=== PATIENT | male | born 1990 | race Caucasian/White ===

== ENCOUNTER 2017-12-21 13:44 | Emergency (ER) | payer OTHER, SELFPAY ==
[2017-12-21 13:47] VITALS: BP 118/73; PULSE 78; RESP 16; TEMP 36.6; O2SAT 98; BMI 29.5
--- NOTE | 2017-12-21 14:45 | ED.LOWEXIN ---
HPI - Extremity Injury (Lower) General Chief Complaint: Extremity Injury, Lower Stated Complaint: POSSIBLE TORN HAMSTRING Time Seen by Provider: 12/21/17 14:45 Source: patient and family Mode of arrival: ambulatory Limitations: no limitations History of Present Illness HPI Narrative: 27 year-old nonsmoker, otherwise healthy male presents with his in the chief complaint of right hamstring injury after slipping on a wet surface a few days ago. He now has increasing pain with ambulation and had some swelling a few days ago which is now improved. He denies any numbness, tingling or weakness. He denies any history of the same. he is here because he could not get in with his primary care provider complaint: leg injury Onset (ago): day(s) Type of Injury: hyperextension Place: home Severity: moderate Relieving factors: nothing Exacerbating factors: movement Context: walking Associated symptoms: snap/pop sensation Other symptoms: none Related Data Home Medications Medication Instructions Recorded Confirmed carboxymethylcellulose sodium 1 drp OPHTHALMIC (EYE) PRN PRN 12/21/17 [Refresh Tears] fluticasone 1 spray INTRANASAL DIRECTED 12/21/17 12/21/17 loratadine 10 mg PO DAILY 12/21/17 12/21/17 sertraline 50 mg PO DAILY 12/21/17 12/21/17 trazodone 50 mg PO DAILY 12/21/17 12/21/17 Allergies Allergy/AdvReac Type Severity Reaction Status Date / Time No Known Drug Allergies Allergy Verified 12/21/17 14:46 Review of Systems Review of Systems All systems reviewed & are unremarkable except as noted in HPI and below Constitutional Denies chills, Denies fever(s), Denies lethargy and Denies weakness Eyes Denies change in vision, Denies eye discharge, Denies irritation and Denies loss of vision ENT Ears, Nose, Mouth, and Throat: Denies change in voice, Denies neck pain and Denies sore throat Cardiovascular Denies chest pain, Denies irregular heart rhythm, Denies lightheadedness, Denies palpitations, Denies dyspnea, Denies dyspnea on exertion and Denies orthopnea Respiratory Denies cough, Denies dyspnea, Denies dyspnea on exertion and Denies wheezing Gastrointestinal Gastrointestinal: Denies abdominal pain, Denies change in bowel habits, Denies diarrhea, Denies nausea and Denies vomiting Genitourinary Denies hematuria, Denies flank pain, Denies urinary incontinence and Denies urinary urgency Musculoskeletal Reports limited range of motion and Denies neck pain Integumentary/Breasts Denies pruritus, Denies erythema, Denies rash and Denies wounds Neurologic Denies confusion, Denies loss of vision and Denies weakness Psychiatric Denies anxiety, Denies confusion, Denies depression, Denies homicidal ideation and Denies suicidal ideation Endocrine Denies palpitations Hematologic/Lymphatic Denies easy bruising Allergic/Immunologic Denies wheezing [facility] Social History Smoking Status: Never smoker Exam Narrative Exam Narrative: 27-year-old male obviously uncomfortable Initial Vital Signs Initial Vital Signs: Vital Signs Temperature 97.8 F 12/21/17 13:47 Pulse Rate 78 12/21/17 13:47 Respiratory Rate 16 12/21/17 13:47 Blood Pressure 118/73 12/21/17 13:47 Pulse Oximetry 98 12/21/17 13:47 Const General: cooperative and well developed Nutritional Appearance: well nourished Orientation: alert, awake, oriented x3 and not confused [facility] Head: normocephalic and atraumatic Ears: external ears normal and TM's normal bilaterally Nose: external nose normal and No nasal discharge Face and sinus: sinuses nontender, face symmetric, no sinus tenderness and No dry mucous membranes Mouth: oral mucosae normal and moist mucous membranes Teeth and gingiva: dentition normal Throat: tonsils normal and uvula midline Eyes General: appearance normal, both eyes and all related structures Eyelids: eyelids normal Conjunctivae: conjunctivae normal Sclera: sclerae normal Pupils: PERRL EOM: EOM intact bilaterally Cardio Rate: regular rate Rhythm: regular rhythm Heart Sounds: no click, no gallops, no murmurs and no rubs Pulses: normal peripheral pulses Back/Spine/Pelvis Back: No CVA tenderness Cervical Spine: cervical ROM normal and No pain with cervical ROM Thoracic/Lumbar Spine: thoracic and lumbar spine normal to inspection Skin General: no rashes or lesions noted, No jaundice and No petechiae Neuro General: alert, oriented x3, gait normal and no focal motor deficits Speech: speech normal Extrem Right lower extremity: hip/thigh (Patient has some tenderness to palpation along his hamstrings but has 5/5 strength with flexion at the knee. There is no ecchymosis or swelling but pain in the distribution suggests hamstring injury) Course Vital Signs - 8 hr 12/21/17 13:47 Temperature 97.8 F Pulse Rate 78 Respiratory Rate 16 Blood Pressure 118/73 Pulse Oximetry 98 Discharge Plan Departure Patient Disposition: Home Clinical Impression: Right hamstring injury Discharge Date/Time: 12/21/17 15:27 Interventions: ED Discharge Assessment Last Done: 12/21/17 15:27 Instructions: DI for Hamstring Strain Activity Restrictions/Additional Instructions: 1. Follow up with your doctors early in the week for follow up, let them know you were seen in the Emergency Department 2. Use crutches as instructed 3. Take motrin and tylenol as directed 4. Return if worse Prescriptions: No Action trazodone 50 mg tablet 50 mg PO DAILY RF: 0 carboxymethylcellulose sodium [Refresh Tears] 0.5 % drops 1 drp ophthalmic (eye) PRN PRN (Reason: Dry Eyes) RF: 0 fluticasone 50 mcg/actuation spray,suspension 1 spray Intranasal DIRECTED RF: 0 sertraline 50 mg tablet 50 mg PO DAILY RF: 0 loratadine 10 mg tablet 10 mg PO DAILY RF: 0
--- NOTE | 2017-12-21 15:26 | PC.NURSE ---
think I tore a hamstring, posterior upper leg apin without visual sign on injury, slip/fall 2 days ago, distal cms intact full AROM with discomfort
== END 2017-12-21 15:27 | disposition home or self-care (01) ==
PROVIDERS: Emergency Provider Emergency Medicine
DX: S76.301A Unspecified injury of muscle, fascia and tendon of the posterior muscle group at thigh level, right thigh, initial encounter (principal); W01.0XXA Fall on same level from slipping, tripping and stumbling without subsequent striking against object, initial encounter
CPT/HCPCS: 99282

== ENCOUNTER → 2018-09-02 07:56 | Outpatient (CLI) | payer OTHER, SELFPAY | PROVIDERS: PCP Internal Medicine; Visit Provider Orthopaedic Surgery | DX: M79.632 Pain in left forearm (principal); M79.631 Pain in right forearm; Z53.9 Procedure and treatment not carried out, unspecified reason ==

== ENCOUNTER → 2018-09-17 13:01 | Outpatient (CLI) | payer OTHER, SELFPAY ==
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
== END ==
PROVIDERS: PCP Internal Medicine; Visit Provider Orthopaedic Surgery
DX: M79.632 Pain in left forearm (principal); M79.631 Pain in right forearm
CPT/HCPCS: 73218

== ENCOUNTER 2018-10-28 20:47 | Emergency (ER) | payer OTHER, SELFPAY ==
[2018-10-28 20:57] VITALS: BP 137/78; PULSE 72; RESP 18; TEMP 36.5; O2SAT 98; BMI 29.5
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
[2018-10-28] MEDS: KETOROLAC 60 MG/2 ML VIAL IM (22:32)
[2018-10-28] MEDS: HYDROCODONE/ACET 5/325 PREPACK 1 BOTTLE MISC (22:38)
== END 2018-10-28 22:40 | disposition home or self-care (01) ==
PROVIDERS: Emergency Provider Emergency Medicine; PCP Internal Medicine
DX: S16.1XXA Strain of muscle, fascia and tendon at neck level, initial encounter (principal); V49.40XA Driver injured in collision with unspecified motor vehicles in traffic accident, initial encounter
CPT/HCPCS: 70450; 72100; 72125; 96372; 99282; 99284; J1885

== ENCOUNTER → 2019-08-13 15:30 | Outpatient (CLI) | payer OTHER, SELFPAY ==
--- NOTE | 2019-08-13 | DI.MRI.S_ITS ---
PROCEDURE: MR LUMBAR SPINE WO CON INDICATIONS: Low back pain with bilateral leg posterior radicular pain TECHNIQUE: Noncontrast sagittal T1 spin echo and T2 fast echo, sagittal STIR, axial T1 and T2 fast spin echo through the lumbar spine. In cases with scoliosis, additional coronal T2 fast spin echo may be performed. COMPARISON: [facility] [place], CR, XR LUMBAR SPINE WITH OBLIQUES, 02/26/2017, 9:37. [facility], MR, L-SPINE WITHOUT CONTRAST, 03/20/2017, 7:03. FINDINGS: Image quality: Excellent. Alignment and Curvature: 5 lumbar type vertebral bodies are present by plain film. There is loss of normal lumbar lordosis. There is mild grade 1 retrolisthesis of L4 on L5. Bone Marrow: Marrow is of normal overall signal. No acute vertebral body compression fractures. There is mild reactive signal within the endplates adjacent to the L4-L5 intervertebral disc. Spinal Cord: Conus medullaris terminates at the mid L1 level. Visualized cord demonstrates normal signal and size. Paraspinous Soft Tissues: No paravertebral masses. L1-L2: Normal appearance. L2-L3: Normal appearance. L3-L4: Mild facet hypertrophy. No significant canal, nor foraminal stenosis. No change. L4-L5: Mild disc desiccation. Mild diffuse disc bulge. Mild bilateral facet hypertrophy. Mild canal stenosis. Mild bilateral foraminal stenosis. No change. L5-S1: Mild bilateral facet hypertrophy. No significant canal stenosis. Mild bilateral foraminal stenosis. No change. IMPRESSION: 1. Multilevel degenerative disc and facet disease, as well as ligamentum flavum hypertrophy and epidural lipomatosis. 2. Mild multilevel canal and foraminal stenoses. No neural impingement. Dictated by: Eric Laura M.D. on 08/13/2019 at 16:44 Approved by: Eric Laura M.D. on 08/13/2019 at 16:47
== END ==
PROVIDERS: PCP Internal Medicine; Referring Provider Physical Medicine & Rehabilitation Pain Medicine; Visit Provider Physical Medicine & Rehabilitation Pain Medicine
DX: M54.5 Low back pain (principal); M51.16 Intervertebral disc disorders with radiculopathy, lumbar region; M48.061 Spinal stenosis, lumbar region without neurogenic claudication; M48.07 Spinal stenosis, lumbosacral region; E88.2 Lipomatosis, not elsewhere classified
CPT/HCPCS: 72148

== ENCOUNTER 2022-05-08 18:47 | Emergency (ER) | payer OTHER, SELFPAY ==
[2022-05-08 18:54] VITALS: BP 122/57; PULSE 69; RESP 16; TEMP 36.6; O2SAT 99; BMI 29.5
--- NOTE | 2022-05-08 19:05 | DI.US.S_ITS ---
PROCEDURE: US SCROTUM INDICATIONS: LEFT TESTICLE SWELLING/PAIN TECHNIQUE: Real-time scanning was performed of the scrotum and testicles, with image documentation. Color and pulse Doppler interrogation was performed of both testicles. COMPARISON: None. FINDINGS: Right: Testicle measures 4.7 x 3.4 x 2.0 cm and appears homogenous in echotexture. Epididymis is normal in overall size and morphology. There is a simple cyst within the right epididymal head measuring 0.3 x 0.2 x 0.2 cm consistent with and epididymal cyst or spermatocele. No hydrocele or varicoceles. Overlying scrotal skin is normal in thickness. Left: Testicle measures 4.8 x 3.4 x 2.0 cm and appears homogeneous in echotexture. Epididymis is normal in overall size and morphology. No hydrocele. There is a small varicocele. Overlying scrotal skin is normal in thickness. Doppler: Color and pulse Doppler demonstrate normal and symmetric arterial flow in both testicles. IMPRESSION: 1. Small left varicocele. Dictated by: Aakash Fam M.D. on 05/08/2022 at 21:05 Approved by: Aakash Fam M.D. on 05/08/2022 at 21:07
--- NOTE | 2022-05-08 19:31 | ED_ITS ---
HPI - Male Genitourinary General Chief complaint: Urogenital-Male Stated complaint: LT. SIDE TESTICAL/HERNIA Time Seen by Provider: 05/08/22 19:05 Source: patient Mode of arrival: Ambulatory History of Present Illness HPI Narrative: Patient is a 32-year-old healthy male who presents with left testicular pain ongoing for about 1 week. He denies any injury. No flank pain no nausea vomiting. Some lower quadrant pain as well. No fever or chills. No painful or frequent urination. He is sexually active with 1 female partner no history of STDs. Related Data Home Medications Medication Instructions Recorded Confirmed carboxymethylcellulose sodium 0.5 1 drp ophthalmic (eye) PRN PRN Dry 12/21/17 % eye drops Eyes fluticasone propionate 50 1 spray intranasal DIRECTED 12/21/17 12/21/17 mcg/actuation nasal spray,suspension loratadine 10 mg tablet 10 mg PO DAILY 12/21/17 12/21/17 sertraline 50 mg tablet 50 mg PO DAILY 12/21/17 12/21/17 trazodone 50 mg tablet 50 mg PO DAILY 12/21/17 12/21/17 Previous Rx's Medication Instructions Recorded cyclobenzaprine 10 mg tablet 10 mg PO TID PRN muscle spasm #14 10/28/18 tabs ketorolac 10 mg tablet 10 mg PO Q6H PRN pain #14 tabs 10/28/18 Allergies Allergy/AdvReac Type Severity Reaction Status Date / Time No Known Drug Allergies Allergy Verified 05/08/22 18:57 Review of Systems Review of Systems ROS Unobtainable: All systems reviewed & are unremarkable except as noted in HPI and below Patient History Social History Smoking Status: Never smoker Smoking Status: Never smoker Substance Use Type: does not use Exam Initial Vital Signs Initial Vital Signs: Vital Signs Temperature 97.9 F 05/08/22 18:54 Pulse Rate 69 05/08/22 18:54 Respiratory Rate 16 05/08/22 18:54 Blood Pressure 122/57 L 05/08/22 18:54 Pulse Oximetry 99 05/08/22 18:54 Oxygen Delivery Method 05/08/22 18:54 GENERAL: Well-appearing, well-nourished and in no acute distress. CARDIOVASCULAR: peripheral pulses in tact, cap refill <2 sec RESPIRATORY: No respiratory distress, speaks in full sentences without difficulty ABDOMEN: Soft, nontender, no guarding or rebound : Nurse Janee present for exam no significant inguinal swelling no testicular herniation appreciated minimal tenderness to left testicle no flank pain. Right testicle also within normal limits EXTREMITIES: Normal range of motion, no clubbing or edema. Neurovascularly intact NEUROLOGICAL: Cranial nerves II through XII grossly intact. Normal gait and speech. SKIN: Warm, dry, no petechiae, no rashes or lesions. Course Orders Ordered: ED Orders 05/08/22 19:05 US scrotum Stat Discontinued Medications Hydrocodone Bitart/Acetaminophen (Hydrocodone/Acet 5/325 Prepack) 1 bottle MISC SEEINSTR ONE Stop: 05/08/22 21:26 Last Admin: 05/08/22 21:53 Dose: 1 bottle Documented By: VERNELL Ketorolac Tromethamine (Ketorolac 30 Mg/Ml Vial) 30 mg IM NOW ONE Stop: 05/08/22 19:43 Last Admin: 05/08/22 19:55 Dose: 30 mg Documented By: AT Vital Signs Vital signs: Vital Signs - 8 hr 05/08/22 18:54 05/08/22 21:55 Temperature 97.9 F Pulse Rate 69 68 Respiratory Rate 16 16 Blood Pressure 122/57 L 120/64 Pulse Oximetry 99 99 Oxygen Delivery Method Room Air MDM - Male Genitourinary Lab Data Labs: Urine Dip Bedside Urine Glucose Negative Bedside Urine Bilirubin - Negative Bedside Urine Ketone - Negative Urine Specific [place] 1.015 Bedside Urine Occult Blood - Negative Bedside Urine pH 6.0 Bedside Urine Protein - Negative Bedside Urine Urobilinogen - Negative Bedside Urine Nitrite - Negative Bedside Urine Leukocytes - Negative Esterase Imaging Data US scrotum : Radiologist's Impression: PROCEDURE:? US SCROTUM ? INDICATIONS:? LEFT TESTICLE SWELLING/PAIN ? TECHNIQUE:? Real-time scanning was performed of the scrotum and testicles, with image docume ntation.? Color and pulse Doppler interrogation was performed of both testicles.? ? COMPARISON:? None. ? FINDINGS:? ? Right:? Testicle measures 4.7 x 3.4 x 2.0 cm and appears homogenous in echotexture.? Epididymis is normal in overall size and morphology.? There is a simple cyst within the right epididymal head measuring 0.3 x 0.2 x 0.2 cm consistent with and epididymal cyst or spermatocele.? No hydrocele or varicoceles.? Overlying scrotal skin is normal in thickness.? ? Left:? Testicle measures 4.8 x 3.4 x 2.0 cm and appears homogeneous in echotexture.? Epididymis is normal in overall size and morphology.? No hydrocele.? There is a small varicocele.? Overlying scrotal skin is normal in thickness.? ? Doppler:? Color and pulse Doppler demonstrate normal and symmetric arterial flow in both testicles.? ? IMPRESSION:? ? 1. Small left varicocele. ? ? Dictated by: Aakash Fam M.D. on 05/08/2022 at 21:05 ? ? Approved by: Aakash Fam M.D. on 05/08/2022 at 21:07 ? [facility] Narrative Medical decision making narrative: Patient healthy 32-year-old male with right testicular pain ongoing for about 1 week. Exam does not show any significant findings mildly tender ultrasound does show a small varicocele. Urinalysis is negative. Low suspicion for STD. He is given 1 dose of Toradol IM here in the ED which helps a little bit. Will give him a prepack of Davis so he can get some rest. Discussed supportive care with him only. Differential diagnosis includes testicular torsion, hydrocele, inguinal hernia, epididymitis Discharge Plan Departure Patient Disposition: Home Clinical Impression: Varicocele Instructions: DI for Varicocele Activity Restrictions/Additional Instructions: *You have been diagnosed with varicocele *What to do: At this time you have vascular abnormality. Wear supportive underwear *Continue to take medications as directed Davis 1 tablet every 6 hours if needed for severe pain Naproxen 500 mg every 12 hours if needed for [id number] pain *Follow up with your primary care provider in 2-3 days or call [phone] *Return to ER if you should have increasing pain swelling redness fever [or] any new, worsening or concerning symptoms CONTROLLED SUBSTANCE DISCHARGE (Narcotoic/benzodiazepine/Flexeril/Phenergan) 1. You have been prescribed narcotic medications, it does have acetaminophen/Tylenol/paracetamol in it, DO NOT TAKE MORE THAN 4,00mg in 24 hours of Tylenol. TRAMADOL DOES NOT CONTAIN TYLENOL 2. Please understand that we cannot provide further refills of narcotics, benzodiazepines or controlled substances through the ED and her pain management will need to be through your provider. 3. While on these medications you cannot drive or operate heavy machinery. 4. You cannot sign legal documents or perform any duties such as this. 5. As long as you're taking opiate pain medications he should also be taking a stool softener such as Colace, Dulcolax, MiraLAX or prune juice, to help avoid constipation. Prescriptions: No Action cyclobenzaprine 10 mg tablet 10 mg PO TID PRN (Reason: muscle spasm) Qty: 14 0RF ketorolac 10 mg tablet 10 mg PO Q6H PRN (Reason: pain) Qty: 14 0RF trazodone 50 mg tablet 50 mg PO DAILY carboxymethylcellulose sodium [Refresh Tears] 0.5 % drops 1 drp ophthalmic (eye) PRN PRN (Reason: Dry Eyes) fluticasone propionate 50 mcg/actuation spray,suspension 1 spray Intranasal DIRECTED sertraline 50 mg tablet 50 mg PO DAILY loratadine 10 mg tablet 10 mg PO DAILY Referrals: Jordan Pantoja DO [Primary Care Provider] - Stand Alone Forms: Patient Portal/API
[2022-05-08] MEDS: KETOROLAC 30 MG/ML VIAL IM (19:55)
[2022-05-08] MEDS: HYDROCODONE/ACET 5/325 PREPACK 1 BOTTLE MISC (21:53)
[2022-05-08 21:55] VITALS: BP 120/64; PULSE 68; RESP 16; O2SAT 99
== END 2022-05-08 22:03 | disposition home or self-care (01) ==
PROVIDERS: Emergency Provider Emergency Medicine; PCP Family Medicine
DX: I86.1 Scrotal varices (principal)
CPT/HCPCS: 76870; 81003; 93975; 96372; 99283; J1885

== ENCOUNTER 2022-05-17 15:58 | Emergency (ER) | payer OTHER, SELFPAY ==
[2022-05-17 16:06] VITALS: BP 137/60; PULSE 74; RESP 18; TEMP 36.8; O2SAT 98; BMI 30.4
[2022-05-17 19:16] LABS: Bacteria Urine None Seen; Culture Indicated Urine Cult Not Indicated; RBC Urine None Seen (0-5/HPF); Squamous Epithelial Cell Urine None Seen (0-5/HPF); WBC Urine None Seen (0-5/HPF)
--- NOTE | 2022-05-17 19:33 | ED_ITS ---
HPI - General Adult General Chief complaint: Urogenital-Male Stated complaint: lower abd pain Time Seen by Provider: 05/17/22 18:56 Source: patient Mode of arrival: Ambulatory History of Present Illness HPI narrative: Patient is a 32-year-old male who is here for evaluation of left-sided lower abdominal/inguinal discomfort. He was seen here in the emergency department a couple days ago for left inguinal/testicular pain. Had an ultrasound which showed a left-sided varicocele. He has followed up with a provider since then was told that he maybe needs a CT scan for evaluation of a potential kidney stone. He is here to see if he can get that CT scan performed. He denies any nausea or vomiting. No fevers. No change in bowel habits. No urinary symptoms. No concern for STDs. Has been taking the medication that he was given during his last visit as directed. Related Data Home Medications Medication Instructions Recorded Confirmed carboxymethylcellulose sodium 0.5 1 drp ophthalmic (eye) PRN PRN Dry 12/21/17 % eye drops Eyes fluticasone propionate 50 1 spray intranasal DIRECTED 12/21/17 12/21/17 mcg/actuation nasal spray,suspension loratadine 10 mg tablet 10 mg PO DAILY 12/21/17 12/21/17 sertraline 50 mg tablet 50 mg PO DAILY 12/21/17 12/21/17 trazodone 50 mg tablet 50 mg PO DAILY 12/21/17 12/21/17 Previous Rx's Medication Instructions Recorded cyclobenzaprine 10 mg tablet 10 mg PO TID PRN muscle spasm #14 10/28/18 tabs ketorolac 10 mg tablet 10 mg PO Q6H PRN pain #14 tabs 10/28/18 Allergies Allergy/AdvReac Type Severity Reaction Status Date / Time No Known Drug Allergies Allergy Verified 05/08/22 18:57 Review of Systems Constitutional Constitutional: Reports system reviewed and no additional complaints, except as documented Cardiovascular Cardiovascular: Reports system reviewed and no additional complaints, except as documented Respiratory Respiratory: Reports system reviewed and no additional complaints, except as documented Gastrointestinal Gastrointestinal: Reports system reviewed and no additional complaints, except as documented Genitourinary Genitourinary: Reports system reviewed and no additional complaints, except as documented Integumentary/Breasts Skin/Breast: Reports system reviewed and no additional complaints, except as documented Neurologic Neurologic: Reports system reviewed and no additional complaints, except as documented Patient History Medical History Left varicocele Social History Smoking Status: Never smoker Smoking Status: Never smoker Substance Use Type: does not use Exam Initial Vital Signs Initial Vital Signs: Vital Signs Temperature 98.2 F 05/17/22 16:06 Pulse Rate 74 05/17/22 16:06 Respiratory Rate 18 05/17/22 16:06 Blood Pressure 137/60 05/17/22 16:06 Pulse Oximetry 98 05/17/22 16:06 Oxygen Delivery Method Room Air 05/17/22 16:06 Const General: cooperative, comfortable and No ill appearing HENMT Head: normal to inspection and normocephalic Resp Effort & Inspection: normal respiratory effort Auscultation: clear to auscultation bilaterally Cardio Rate: regular rate Rhythm: regular rhythm GI Inspection: normal to inspection and non-distended Palpation: No soft, No firm and tender Back/Spine/Pelvis Back: No CVA tenderness Skin General: no rashes or lesions noted Neuro General: patient alert, patient awake, patient oriented x3 and moves all extremities Extrem General: capillary refill normal Course Orders Ordered: ED Orders 05/17/22 16:15 Urine Microscopic Stat 05/17/22 19:36 CT kidney ureter bladder (KUB) Stat 05/17/22 20:00 Complete Blood Count AUTO DIFF Stat Comprehensive Metabolic Panel Stat Lipase Stat Discontinued Medications Ketorolac Tromethamine (Ketorolac 30 Mg/Ml Vial) 30 mg IV NOW ONE Stop: 05/17/22 20:56 Last Admin: 05/17/22 21:08 Dose: 30 mg Documented By: GENARO Vital Signs Vital signs: Vital Signs - 8 hr 05/17/22 21:23 Pulse Rate 61 Blood Pressure 126/68 Pulse Oximetry 97 Oxygen Delivery Method Room Air Medical Decision Making Medical Records Medical records reviewed: Yes I reviewed the patient's medical records. Lab Data Lab results reviewed: Yes I reviewed the patient's lab results. 05/17/22 20:00 05/17/22 20:00 Labs: Lab Results 05/17/22 05/17/22 05/17/22 Range/Units 16:15 20:00 20:00 WBC 7.5 (4.5-11.0) X10^3/uL RBC 4.72 (4.5-5.9) X10^6/uL Hgb 14.5 (13.5-17.5) g/dL Hct 42.1 (41-53) % MCV 89.2 (80-100) fL MCH 30.7 (26-34) PG MCHC 34.4 (30-36) % RDW 13.0 (11.6-14.8) % Plt Count 254 (150-400) X10^3/uL Neut % (Auto) 53.7 (50-75) % Lymph % (Auto) 37.5 (25-40) % [place] % (Auto) 6.0 (3-14) % Eos % (Auto) 2.6 (2-4) % Baso % (Auto) 0.2 (0-2) % Neut # (Auto) 4000 (5074-4311) /uL Lymph # (Auto) 2800 (8290-7096) /uL [place] # (Auto) 400 (0-900) /uL Eos # (Auto) 200 (0-450) /uL Baso # (Auto) 0 (0-100) /uL Sodium 139 (137-145) mmol/L Potassium 4.1 (3.4-5.1) mmol/L Chloride 99 (98-107) mmol/L Carbon Dioxide 32 (22-32) mmol/L BUN 16 (9-20) mg/dL Creatinine 0.92 (0.66-1.25) mg/dL Estimated GFR > 60 (>60) mL/min BUN/Creatinine Ratio 17.4 (6-22) Glucose 99 (70-100) mg/dL Calcium 9.2 (8.4-10.2) mg/dL Total Bilirubin 0.7 (0.2-1.3) mg/dL AST 23 (17-59) IU/L ALT 24 (<50) IU/L Alkaline Phosphatase 68 (38-126) U/L Total Protein 7.6 (6.3-8.2) g/dL Albumin 4.6 (3.5-5.0) g/dL Globulin 3.0 (1.7-4.1) g/dL Albumin/Globulin Ratio 1.5 (1.0-2.8) Lipase 114 (23-300) U/L Urine RBC None seen (0-5/HPF) Urine WBC None seen (0-5/HPF) Ur Squamous Epith Cells None seen (0-5/HPF) Urine Bacteria None seen (None) Ur Culture Indicated? Cult not indicated Urine Dip Bedside Urine Glucose Negative Bedside Urine Bilirubin - Negative Bedside Urine Ketone - Negative Urine Specific [place] 1.010 Bedside Urine Occult Blood - Negative Bedside Urine pH 8.0 Bedside Urine Protein - Negative Bedside Urine Urobilinogen - Negative Bedside Urine Nitrite - Negative Bedside Urine Leukocytes - Negative Esterase Point of care testing: Urine Dip Bedside Urine Glucose Negative Bedside Urine Bilirubin - Negative Bedside Urine Ketone - Negative Urine Specific [place] 1.010 Bedside Urine Occult Blood - Negative Bedside Urine pH 8.0 Bedside Urine Protein - Negative Bedside Urine Urobilinogen - Negative Bedside Urine Nitrite - Negative Bedside Urine Leukocytes - Negative Esterase Imaging Data CT scan - abdomen/pelvis: Radiologist's Impression: PROCEDURE:? CT KIDNEY URETER BLADDER (KUB) ? INDICATIONS:? L side pain eval for stone ? TECHNIQUE:? Axial sections were acquired from the lung bases to the pubic symphysis.? Coronal and sagittal reformats were performed.? For radiation dose reduction, the following was used: ?automated exposure control, adjustment of mA and/or kV according to patient size.? ? COMPARISON:? None. ? FINDINGS:? Image quality:? Excellent.? ? Lung bases:? Unremarkable.? ? Heart:? No significant findings. ? URINARY: Right Kidney: ? No stones or hydronephrosis.? Right Ureter:? No hydroureter.? ? Left Kidney:? Punctate nonobstructing mid pole calcification.? Left Ureter:? No hydroureter.? ? Bladder:? Normal wall thickness. No stones. ? ? ? ABDOMEN: Liver:? Unremarkable.? ? Gallbladder:? Unremarkable.? ? Biliary ducts:? Unremarkable.? ? Pancreas:? Unremarkable.? ? Spleen:? Unremarkable.? ? Adrenal Glands:? Unremarkable.? ? ? Stomach and Bowel:? Stomach, small bowel loops, and colon are nonobstructive.? Appendix is normal.? Minimal scattered diverticula without inflammatory change. Peritoneum:? No abnormal intraperitoneal fluid.? No free air.? ? Ventral Wall: ? No hernia.? Abdominal Nodes:? No enlarged retroperitoneal or mesenteric lymph nodes.? Vessels:? Aorta and inferior vena cava are normal in size.? ? PELVIS: Pelvic Organs:? Unremarkable.? ? Pelvic Nodes: Unremarkable. Miscellaneous: No inguinal hernias are seen. ? ? ? Bones:? Unremarkable. ? IMPRESSION:? ? Punctate nonobstructing left renal calculus. ? Diverticulosis. ? MDM Narrative Medical decision making narrative: Patient has had a fairly extensive workup over the past couple days to include labs and ultrasound and CT scan. His workup today is relatively unremarkable without any signs of acute pathology. There is no signs of any infection. Patient has no concern about STDs. Unsure the exact etiology of the patient's symptoms and he expressed understanding of this. Will have him talk with his primary doctor about referral to either see Urology or GI. He was given return precautions. He expressed understanding and agreement. Discharge Plan Departure Patient Disposition: Home Clinical Impression: Abdominal pain Instructions: DI for Abdominal Pain-Adult Activity Restrictions/Additional Instructions: Unfortunately we do not have a specific diagnosis for the cause of your abdominal pain however you have had a fairly extensive workup which did not show anything that was infectious or surgical or emergent. I would recommend that you talk with your doctor about the indications for referral to see Gastroente rology or potentially urology. If your symptoms worsen or change you develop new symptoms please return to the emergency department for further evaluation. Prescriptions: No Action cyclobenzaprine 10 mg tablet 10 mg PO TID PRN (Reason: muscle spasm) Qty: 14 0RF ketorolac 10 mg tablet 10 mg PO Q6H PRN (Reason: pain) Qty: 14 0RF trazodone 50 mg tablet 50 mg PO DAILY carboxymethylcellulose sodium [Refresh Tears] 0.5 % drops 1 drp ophthalmic (eye) PRN PRN (Reason: Dry Eyes) fluticasone propionate 50 mcg/actuation spray,suspension 1 spray Intranasal DIRECTED sertraline 50 mg tablet 50 mg PO DAILY loratadine 10 mg tablet 10 mg PO DAILY Referrals: Jordan Pantoja DO [Primary Care Provider] - Stand Alone Forms: Patient Portal/API
--- NOTE | 2022-05-17 19:36 | DI.CT.S_ITS ---
PROCEDURE: CT KIDNEY URETER BLADDER (KUB) INDICATIONS: L side pain eval for stone TECHNIQUE: Axial sections were acquired from the lung bases to the pubic symphysis. Coronal and sagittal reformats were performed. For radiation dose reduction, the following was used: automated exposure control, adjustment of mA and/or kV according to patient size. COMPARISON: None. FINDINGS: Image quality: Excellent. Lung bases: Unremarkable. Heart: No significant findings. URINARY: Right Kidney: No stones or hydronephrosis. Right Ureter: No hydroureter. Left Kidney: Punctate nonobstructing mid pole calcification. Left Ureter: No hydroureter. Bladder: Normal wall thickness. No stones. ABDOMEN: Liver: Unremarkable. Gallbladder: Unremarkable. Biliary ducts: Unremarkable. Pancreas: Unremarkable. Spleen: Unremarkable. Adrenal Glands: Unremarkable. Stomach and Bowel: Stomach, small bowel loops, and colon are nonobstructive. Appendix is normal. Minimal scattered diverticula without inflammatory change. Peritoneum: No abnormal intraperitoneal fluid. No free air. Ventral Wall: No hernia. Abdominal Nodes: No enlarged retroperitoneal or mesenteric lymph nodes. Vessels: Aorta and inferior vena cava are normal in size. PELVIS: Pelvic Organs: Unremarkable. Pelvic Nodes: Unremarkable. Miscellaneous: No inguinal hernias are seen. Bones: Unremarkable. IMPRESSION: Punctate nonobstructing left renal calculus. Diverticulosis. Dictated by: Ana Sanchez M.D. on 05/17/2022 at 19:47 Approved by: Ana Sanchez M.D. on 05/17/2022 at 19:48
[2022-05-17 20:07] LABS: Add Manual Diff / Slide Review NO; Basophils Absolute Auto 0 /uL (0-100); Basophils Percent Auto 0.2 % (0-2); Eosinophils Absolute Auto 200 /uL (0-450); Eosinophils Percent Auto 2.6 % (2-4); Hematocrit 42.1 % (41-53); Hemoglobin 14.5 g/dL (13.5-17.5); Lymphocytes Absolute Auto 2800 /uL (1100-4500); Lymphocytes Percent Auto 37.5 % (25-40); Mean Corpuscular HGB Conc 34.4 % (30-36); Mean Corpuscular Hemoglobin 30.7 PG (26-34); Mean Corpuscular Volume 89.2 fL (80-100); Monocytes Absolute Auto 400 /uL (0-900); Neutrophils Absolute Auto 4000 /uL (1500-7000); Neutrophils Percent Auto 53.7 % (50-75); Platelet Count 254 X10^3/uL (150-400); Red Blood Cell Count 4.72 X10^6/uL (4.5-5.9); White Blood Cell Count 7.5 X10^3/uL (4.5-11.0)
[2022-05-17 20:18] LABS: Alanine Aminotransferase 24 IU/L (<50); Albumin 4.6 g/dL (3.5-5.0); Albumin Globulin Ratio 1.5 (1.0-2.8); Alkaline Phosphatase 68 U/L (38-126); Aspartate Aminotransferase 23 IU/L (17-59); BUN Creatinine Ratio 17.4 (6-22); Bilirubin Total 0.7 mg/dL (0.2-1.3); Blood Urea Nitrogen 16 mg/dL (9-20); Calcium 9.2 mg/dL (8.4-10.2); Carbon Dioxide 32 mmol/L (22-32); Chloride 99 mmol/L (98-107); Estimated Glomerular Filt Rate > 60 mL/min (>60); Glucose 99 mg/dL (70-100); HEMOLYSIS < 15 (0-50); Lipase 114 U/L (23-300); Potassium 4.1 mmol/L (3.4-5.1); Sodium 139 mmol/L (137-145); Total Protein 7.6 g/dL (6.3-8.2)
[2022-05-17] MEDS: KETOROLAC 30 MG/ML VIAL IV (21:08)
[2022-05-17 21:23] VITALS: BP 126/68; PULSE 61; O2SAT 97
== END 2022-05-17 21:24 | disposition home or self-care (01) ==
PROVIDERS: Nurse Practitioner Critical Care Medicine; Emergency Provider Emergency Medicine; PCP Family Medicine
DX: R10.32 Left lower quadrant pain (principal)
CPT/HCPCS: 36415; 51798; 74176; 80053; 81003; 81015; 83690; 85025; 96374; 99284; J1885

== ENCOUNTER 2022-12-06 17:05 | Emergency (ER) | payer OTHER, SELFPAY ==
[2022-12-06 17:31] VITALS: BP 122/78; PULSE 70; RESP 14; TEMP 36.7; O2SAT 99; BMI 29.5
--- NOTE | 2022-12-06 18:38 | ED_ITS ---
HPI - Skin/Abscess/Foreign Bdy General Chief complaint: Skin/Abscess/Foreign Body Stated complaint: L/Thumb LAC Time Seen by Provider: 12/06/22 18:38 Source: patient Mode of arrival: Ambulatory Limitations: no limitations History of Present Illness HPI narrative: 32-year-old male nonsmoker with noncontributory medical history presents with a significant other and a chief complaint of an accidental laceration to the tip of his left thumb with a sharp knife just prior to arrival. His tetanus will need to be updated. He had bleeding and moderate pain. No numbness, tingling or weakness. He is otherwise well and free of complaint Related Data Home Medications Medication Instructions Recorded Confirmed carboxymethylcellulose sodium 0.5 1 drp ophthalmic (eye) PRN PRN Dry 12/21/17 % eye drops Eyes fluticasone propionate 50 1 spray intranasal DIRECTED 12/21/17 12/21/17 mcg/actuation nasal spray,suspension loratadine 10 mg tablet 10 mg PO DAILY 12/21/17 12/21/17 sertraline 50 mg tablet 50 mg PO DAILY 12/21/17 12/21/17 trazodone 50 mg tablet 50 mg PO DAILY 12/21/17 12/21/17 Previous Rx's Medication Instructions Recorded cyclobenzaprine 10 mg tablet 10 mg PO TID PRN muscle spasm #14 10/28/18 tabs ketorolac 10 mg tablet 10 mg PO Q6H PRN pain #14 tabs 10/28/18 Allergies Allergy/AdvReac Type Severity Reaction Status Date / Time No Known Drug Allergies Allergy Verified 12/06/22 17:32 Review of Systems Review of Systems Narrative: GENERAL: Denies chills, fatigue, malaise, fever, sweats. HEENT: Denies sinus pain, ear pain, sore throat, difficulty swallowing, dizziness. RESPIRATORY: Denies dyspnea, cough, wheezing, hemoptysis, sputum. CARDIOVASCULAR: Denies chest pain, palpitations, orthopnea, edema, GASTROINTESTINAL: Denies nausea, vomiting, abdominal pain, diarrhea, constipation, melena. : Denies dysuria, frequency, incontinence, hematuria, urinary retention. MUSCULOSKELETAL: denies weakness, joint pain, or bony pain SKIN: See HPI NEUROLOGIC: Denies weakness, headache, numbness, change in speech, confusion, seizures, incoordination. PSYCHIATRIC: No concerning psychosocial issues. 12 point review of systems is negative except for those stated above Patient History Medical History Left varicocele Social History Smoking Status: Never smoker Smoking Status: Never smoker alcohol intake frequency: 0-2 drinks per day Substance Use Type: does not use Exam Narrative Exam Narrative: GENERAL: [32] year old patient appears stated age. Well-developed patient, in mild distress. HEAD: Atraumatic. Normocephalic. EYES: Pupils equal round and reactive. Extraocular motions intact. No scleral icterus. No injection or drainage. ENT: Nose without bleeding, purulent drainage. Throat without erythema, tonsillar hypertrophy or exudate. Airway patent. NECK: Trachea midline. Non tender CARDIOVASCULAR: Regular rate and rhythm without murmurs, gallops, or rubs. RESPIRATORY: Clear to auscultation. Breath sounds equal bilaterally. No wheezes, rales, or rhonchi. GASTROINTESTINAL: Abdomen soft, non-tender, nondistended. EXTREMITIES: 1.5 cm crescent shaped laceration to the tip of the left thumb, no tendon, bony involvement or evidence of foreign body. There is some bleeding BACK: Nontender without deformity or crepitance. No flank tenderness. NEURO: AOx3. SKIN: No rash or erythema of visible areas Initial Vital Signs Initial Vital Signs: Vital Signs Temperature 98.1 F 12/06/22 17:31 Pulse Rate 70 12/06/22 17:31 Respiratory Rate 14 12/06/22 17:31 Blood Pressure 122/78 12/06/22 17:31 Pulse Oximetry 99 12/06/22 17:31 Oxygen Delivery Method Room Air 12/06/22 17:31 Procedures Laceration Repair Laceration 1: Site: hand Side (If applicable): left Size (cm): 1.5 Description: linear and clean Depth: simple, single layer Local Anesthetic: lidocaine 1% Amount of anesthesia used (mL): 3 Pre-repair: wound explored and cleansed with chlorhexadine Skin layer closed with: nylon Skin layer suture size: 5-0 Number of sutures: 4 Technique: simple, interrupted Course Orders Ordered: Discontinued Medications Tetanus/Diphtheria Toxoids (Tetanus Diphtheria Toxoids 0.5 Ml Vial) 0.5 ml IM .ONCE ONE Stop: 12/06/22 19:11 Vital Signs Vital signs: Vital Signs - 8 hr 12/06/22 17:31 Temperature 98.1 F Pulse Rate 70 Respiratory Rate 14 Blood Pressure 122/78 Pulse Oximetry 99 Oxygen Delivery Method Room Air MDM - Skin/Abscess/Foreign Bdy MDM Narrative Medical decision making narrative: [32] year old patient presents with simple thumb laceration Prior Charts reviewed in our EMR Primary Historian: patient Patient with reassuring history and physical exam, small simple laceration to the tip of the finger with no tendon or bony involvement, no numbness, tingling or weakness. Tetanus updated, wound cleansed, sutures placed and return precautions discussed Findings and discharge diagnosis discussed with patient/family followed by verbalization of understanding Return precautions discussed with patient/family whom verbalize understanding of diagnosis and plan Discharge Plan Departure Patient Disposition: Home Clinical Impression: Laceration of thumb Instructions: DI for Laceration Repair Activity Restrictions/Additional Instructions: *You have been diagnosed with [left thumb laceration with 4 sutures placed. Your tetanus was updated today] *What to do: *Please continue to take your regular medications as directed. * Please keep the wound clean and dry to the best of your ability. Please monitor for signs of infection such as redness to the skin or increasing pain. Have the sutures/elaine removed by your doctor in about 10-14 days. If you are unable to get into your doctor, we would be happy to remove the sutures/elaine in that same timeframe. *If you do not have a primary care provider please contact the [facility] Resource line at [phone]. They will ask some questions about your medical history and help get you set up with a doctor in the community. *Return to Emergency Department if you should have any new, worsening or concerning symptoms, such as [fever greater than 101 F, shaking chills, worsening pain, persistent vomiting or other bothersome symptoms] Prescriptions: No Action cyclobenzaprine 10 mg tablet 10 mg PO TID PRN (Reason: muscle spasm) Qty: 14 0RF ketorolac 10 mg tablet 10 mg PO Q6H PRN (Reason: pain) Qty: 14 0RF trazodone 50 mg tablet 50 mg PO DAILY carboxymethylcellulose sodium [Refresh Tears] 0.5 % drops 1 drp ophthalmic (eye) PRN PRN (Reason: Dry Eyes) fluticasone propionate 50 mcg/actuation spray,suspension 1 spray Intranasal DIRECTED sertraline 50 mg tablet 50 mg PO DAILY loratadine 10 mg tablet 10 mg PO DAILY Referrals: Jordan Pantoja DO [Primary Care Provider] - Stand Alone Forms: Patient Portal/API
[2022-12-06] MEDS: TETANUS DIPHTHERIA TOXOIDS 0.5 ML VIAL IM (19:19)
== END 2022-12-06 19:28 | disposition home or self-care (01) ==
PROVIDERS: Emergency Provider Emergency Medicine; PCP Family Medicine
DX: S61.012A Laceration without foreign body of left thumb without damage to nail, initial encounter (principal); W26.0XXA Contact with knife, initial encounter; Z23 Encounter for immunization
CPT/HCPCS: 12001; 90471; 90714; 99283

== ENCOUNTER 2024-03-06 14:37 | Emergency (ER) | payer OTHER, SELFPAY ==
[2024-03-06 14:41] VITALS: BP 128/59; PULSE 77; RESP 18; TEMP 36.7; O2SAT 99; BMI 29.5
--- NOTE | 2024-03-06 14:48 | DI.RAD.S_ITS ---
PROCEDURE: XR ELBOW LT MIN 3V INDICATIONS: fall/pain TECHNIQUE: 4 views of the elbow were acquired. COMPARISON: None. FINDINGS: Bones: Comminuted fracture involving posterior cortex of proximal ulnar shaft is seen. No other fracture or dislocation. No suspicious bony lesions. Soft tissues: Deep soft tissue laceration over dorsal aspect of proximal forearm is seen. No definite radiopaque foreign bodies. No suspicious soft tissue calcifications. IMPRESSION: Deep laceration over dorsal aspect of proximal forearm with underlying comminuted fracture involving posterior cortex of proximal ulnar shaft. No other fracture or dislocation. No significant elbow joint effusion. Dictated by: Boo Ivy M.D. on 03/06/2024 at 15:07 Approved by: Boo Ivy M.D. on 03/06/2024 at 15:09
[2024-03-06] MEDS: ACETAMINOPHEN 325 MG TABLET 650 MG PO (16:50)
[2024-03-06] MEDS: IBUPROFEN 400 MG TABLET PO (16:51)
[2024-03-06] MEDS: OXYCODONE/ACETAMINOPHEN 5/325 TABLET 1 TAB PO (17:58)
[2024-03-06] MEDS: cephALEXin 250 MG CAPSULE 500 MG PO (17:58)
--- NOTE | 2024-03-06 18:25 | ED_ITS ---
HPI - General Adult General Chief complaint: Extremity Injury, Upper Stated complaint: Laceration to left elbow Time Seen by Provider: 03/06/24 17:27 Source: patient Mode of arrival: Ambulatory History of Present Illness HPI narrative: Patient was a 34-year-old male. States he was up-to-date on his tetanus who is here for evaluation of an injury he sustained when he fell and injured his left elbow. He states he landed on the metal track of his sliding glass door. It was a mechanical fall. He sustained a laceration to his left elbow. No other injuries from the event. He was left shoulder is unremarkable in his left wrist is unremarkable. Did not hit his head. No loss of consciousness. Related Data Home Medications Medication Instructions Recorded Confirmed carboxymethylcellulose sodium 0.5 1 drp ophthalmic (eye) PRN PRN Dry 12/21/17 % eye drops Eyes fluticasone propionate 50 1 spray intranasal DIRECTED 12/21/17 12/21/17 mcg/actuation nasal spray,suspension loratadine 10 mg tablet 10 mg PO DAILY 12/21/17 12/21/17 sertraline 50 mg tablet 50 mg PO DAILY 12/21/17 12/21/17 trazodone 50 mg tablet 50 mg PO DAILY 12/21/17 12/21/17 Previous Rx's Medication Instructions Recorded cyclobenzaprine 10 mg tablet 10 mg PO TID PRN muscle spasm #14 10/28/18 tabs ketorolac 10 mg tablet 10 mg PO Q6H PRN pain #14 tabs 10/28/18 cephalexin 500 mg capsule 500 mg PO QID 10 days #40 caps 03/06/24 hydrocodone 5 mg-acetaminophen 325 1 tab PO Q4-6H PRN pain #10 tabs 03/06/24 mg tablet Allergies Allergy/AdvReac Type Severity Reaction Status Date / Time No Known Drug Allergies Allergy Verified 12/06/22 17:32 Review of Systems Constitutional Constitutional: Reports system reviewed and no additional complaints, except as documented Musculoskeletal Musculoskeletal: Reports system reviewed and no additional complaints, except as documented Integumentary/Breasts Skin/Breast: Reports system reviewed and no additional complaints, except as documented Neurologic Neurologic: Reports system reviewed and no additional complaints, except as documented Hematologic/Lymphatic On Anticoagulants: No Patient History Medical History Left varicocele Social History Smoking Status: Never smoker Smoking Status: Never smoker alcohol intake frequency: 0-2 drinks per day Exam Initial Vital Signs Initial Vital Signs: Vital Signs Temperature 98.1 F 03/06/24 14:41 Pulse Rate 77 03/06/24 14:41 Respiratory Rate 18 03/06/24 14:41 Blood Pressure 128/59 L 03/06/24 14:41 Pulse Oximetry 99 03/06/24 14:41 Oxygen Delivery Method Room Air 03/06/24 14:41 Const General: cooperative and comfortable HENMT Head: normal to inspection and normocephalic Cardio Pulses: radial pulses present on the left Skin Other: 4 cm laceration on the ulnar/posterior aspect of the left elbow distal to the elbow joint. Neuro Sensory Exam: no sensory deficits noted Other: Ulnar nerve intact with functional testing. Extrem Other: Discomfort with palpation movement of the left elbow. His left shoulder and left wrist are unremarkable. Procedures Laceration Repair Laceration 1: Site: upper extremity Side (If applicable): left Size (cm): 4 Description: linear Depth: involves muscle layer Local Anesthetic: lidocaine 1% and with epi Amount of anesthesia used (mL): 8 Pre-repair: wound explored and irrigated extensively Skin layer closed with: nylon Skin layer suture size: 4-0 Number of sutures: 12 Technique: simple, interrupted Orthopedic Splinting/Casting Injury #1: Side: left Upper Extremity Injury Location: elbow Upper Extremity Immobilizer: posterior splint Post splinting neuro exam: no change Post splinting vascular exam: no change Placed by: Nursing Course Orders Ordered: Discontinued Medications Acetaminophen (Acetaminophen 325 Mg Tablet) 650 mg PO NOW ONE Stop: 03/06/24 16:47 Last Admin: 03/06/24 16:50 Dose: 650 mg Documented By: REMY Hydrocodone Bitart/Acetaminophen (Hydrocodone/Acet 5/325 Prepack) 1 bottle MISC DIRECTED ONE Stop: 03/06/24 20:24 Last Admin: 03/06/24 20:52 Dose: 1 bottle Documented By: ROYER Bacitracin (Bacitracin Oint 0.9 Gm Pckt) 1 applic TOP NOW ONE Stop: 03/06/24 20:24 Last Admin: 03/06/24 20:32 Dose: 1 applic Documented By: ROYER Bacitracin (Bacitracin Oint 0.9 Gm Pckt) 1 applic TOP NOW ONE Stop: 03/06/24 20:24 Last Admin: 03/06/24 20:33 Dose: Not Given Documented By: ROYER Cephalexin HCl (Cephalexin 250 Mg Capsule) 500 mg PO NOW ONE Stop: 03/06/24 17:31 Last Admin: 03/06/24 17:58 Dose: 500 mg Documented By: CTS Diphtheria/Tetanus/Acell Pertussis (Tet,Diph,Pertuss(Acell),Vac/Pf 0.5 Ml Syringe) 0.5 ml IM .ONCE ONE Stop: 03/06/24 17:31 Last Admin: 03/06/24 18:01 Dose: Not Given Documented By: REMY Ibuprofen (Ibuprofen 400 Mg Tablet) 400 mg PO NOW ONE Stop: 03/06/24 16:47 Last Admin: 03/06/24 16:51 Dose: 400 mg Documented By: CTS Lidocaine/Epinephrine (Lidocaine 2% W/Epi Inj 10 Ml Vial) 20 ml INJ INTRA-OP ONE Stop: 03/06/24 18:27 Last Admin: 03/06/24 18:44 Dose: 10 ml Documented By: CTS Oxycodone/Acetaminophen (Oxycodone/Acetaminophen 5/325 Tablet) 1 tab PO NOW ONE Stop: 03/06/24 17:31 Last Admin: 03/06/24 17:58 Dose: 1 tab Documented By: CTS Vital Signs Vital signs: Vital Signs - 8 hr 03/06/24 20:46 Temperature 98.0 F Pulse Rate 72 Respiratory Rate 16 Blood Pressure 106/54 L Pulse Oximetry 98 Oxygen Delivery Method Room Air Medical Decision Making Imaging Data Extremity x-ray #1: Radiologist's Impression: PROCEDURE: XR ELBOW LT MIN 3V INDICATIONS: fall/pain TECHNIQUE: 4 views of the elbow were acquired. COMPARISON: None. FINDINGS: Bones: Comminuted fracture involving posterior cortex of proximal ulnar shaft is seen. No other fracture or dislocation. No suspicious bony lesions. Soft tissues: Deep soft tissue laceration over dorsal aspect of proximal forearm is seen. No definite radiopaque foreign bodies. No suspicious soft tissue calcifications. IMPRESSION: Deep laceration over dorsal aspect of proximal forearm with underlying comminuted fracture involving posterior cortex of proximal ulnar shaft. No other fracture or dislocation. No significant elbow joint effusion. MDM Narrative Medical decision making narrative: X-ray shows a proximal ulnar fracture. There was an overlying laceration. My exploration of the wound does not appear that the joint is exposed. Patient did receive antibiotics here in the emergency department. The wound was irrigated extensively. I discussed the case with Dr. Brody orthopedist on-call who recommended closure and placing in his splint and will follow up with the patient most like the beginning of next week. I discussed this with the patien t. We discussed return precautions. He expressed understanding and agreement with plan. Discharge Plan Departure Patient Disposition: Home Clinical Impression: Fracture, ulna, proximal, Laceration of skin Instructions: DI for Laceration Repair, How to Take Care of Your Splint Activity Restrictions/Additional Instructions: The splint that was placed today does need to stay in place until you follow-up with orthopedics. Call them tomorrow for a follow-up. Take the antibiotics and the pain medication as directed. Return to the emergency department for new or worsening symptoms. Prescriptions: New hydrocodone-acetaminophen 5-325 mg tablet 1 tab PO Q4-6H PRN (Reason: pain) Qty: 10 0RF cephalexin 500 mg capsule 500 mg PO QID 10 Days Qty: 40 0RF No Action cyclobenzaprine 10 mg tablet 10 mg PO TID PRN (Reason: muscle spasm) Qty: 14 0RF ketorolac 10 mg tablet 10 mg PO Q6H PRN (Reason: pain) Qty: 14 0RF trazodone 50 mg tablet 50 mg PO DAILY carboxymethylcellulose sodium [Refresh Tears] 0.5 % drops 1 drp ophthalmic (eye) PRN PRN (Reason: Dry Eyes) fluticasone propionate 50 mcg/actuation spray,suspension 1 spray Intranasal DIRECTED sertraline 50 mg tablet 50 mg PO DAILY loratadine 10 mg tablet 10 mg PO DAILY Referrals: Jordan Pantoja DO [Primary Care Provider] - Efren Brody MD [Physician] - Stand Alone Forms: Patient Portal/API/Survey
[2024-03-06] MEDS: LIDOCAINE 2% W/EPI INJ 10 ML VIAL 20 ML INJ (18:44)
--- NOTE | 2024-03-06 20:01 | PC.NURSE ---
Wound to L elbow was irrigated by prior RN with at least 1L NS.
[2024-03-06] MEDS: BACITRACIN OINT 0.9 GM PCKT 1 APPLIC TOP (20:32)
[2024-03-06 20:46] VITALS: BP 106/54; PULSE 72; RESP 16; TEMP 36.7; O2SAT 98
[2024-03-06] MEDS: HYDROCODONE/ACET 5/325 PREPACK 1 BOTTLE MISC (20:52)
== END 2024-03-06 21:01 | disposition home or self-care (01) ==
PROVIDERS: Emergency Provider Emergency Medicine; PCP Family Medicine
DX: S52.002B Unspecified fracture of upper end of left ulna, initial encounter for open fracture type I or II (principal); W01.198A Fall on same level from slipping, tripping and stumbling with subsequent striking against other object, initial encounter
CPT/HCPCS: 12002; 29105; 73080; 99283; 99284; 90715